=== PATIENT | female | born 1995 | race American Indian/Alaskan Native ===

== ENCOUNTER 2018-08-29 22:02 | Emergency (ER) | payer OTHER ==
--- NOTE | 2018-08-29 23:43 | ED PDOC ---
Arrival/HPI <DieterEddie - Last Filed: 08/30/18 00:51> - General Historian: Patient - History of Present Illness Narrative History of Present Illness (Text): 08/30/18 00:30 23-year-old female presents today with vaginal lesions and burning pain to the vagina since yesterday. Patient states she was seen by her sql etl developer today for similar symptoms and had blood work performed. Patient states she was not given any information as to what could possibly be going on. Patient was not given any medications for pain. Patient presents today with continued pain. States she has not taken any medication for pain at home. Patient states she has painful ulcerations to the vaginal region. Patient states she was told in the past that she had type I herpes. <Lorene Sheriff - Last Filed: 08/30/18 01:21> - General Chief Complaint: Female Genitourinary Time Seen by Provider: 08/29/18 22:41 Past Medical History - Provider Review Nursing Documentation Reviewed: Yes - Tetanus Immunization Tetanus Immunization: Unknown - Reproductive Currently : No - Psychiatric Hx Substance Use: No <Lorene Sheriff - Last Filed: 08/30/18 01:21> Family/Social History - Physician Review Nursing Documentation Reviewed: Yes Family/Social History: Unknown Family HX Smoking Status: Never Smoked Hx Alcohol Use: No Hx Substance Use: No <Lorene Sheriff - Last Filed: 08/30/18 01:21> Allergies/Home Meds <DieterEddie - Last Filed: 08/30/18 00:51> <Lorene Sheriff - Last Filed: 08/30/18 01:21> Allergies/Adverse Reactions: Allergies No Known Allergies Allergy (Verified 08/29/18 22:46) Review of Systems - Review of Systems Constitutional: absent: Fatigue, Fevers Respiratory: absent: SOB, Cough Cardiovascular: absent: Chest Pain, Palpitations Gastrointestinal: absent: Abdominal Pain, Constipation, Diarrhea, Nausea, Vomiting Genitourinary Female: Other (vaginal lesions). absent: Frequency, Hematuria, Vaginal Discharge Musculoskeletal: absent: Back Pain, Neck Pain Skin: absent: Rash, Pruritis <Lorene Sheriff - Last Filed: 08/30/18 01:21> Physical Exam Vital Signs Temp Pulse Resp BP Pulse Ox 08/30/18 00:15 98.6 F 70 19 145/79 99 08/29/18 22:55 98.4 F 75 20 152/77 H 98 <Eddie Garcias - Last Filed: 08/30/18 00:51> Vital Signs Reviewed: Yes Vital Signs Temp Pulse Resp BP Pulse Ox 08/29/18 22:55 98.4 F 75 20 152/77 H 98 Temperature: Afebrile Blood Pressure: Hypertensive Pulse: Regular Respiratory Rate: Normal Appearance: Positive for: Well-Appearing, Non-Toxic, Comfortable Pain Distress: None Mental Status: Positive for: Alert and Oriented X 3 - Systems Exam Head: Present: Atraumatic Mouth: Present: Moist Mucous Membranes Neck: Present: Normal Range of Motion Respiratory/Chest: Present: Clear to Auscultation, Good Air Exchange. No: Respiratory Distress, Accessory Muscle Use Cardiovascular: Present: Regular Rate and Rhythm, Normal S1, S2. No: Murmurs Abdomen: No: Tenderness, Distention, Rebound, Guarding Genitourinary/Pelvic Exam: Present: Other (chaperoned by ER ALAM fernando). No: Normal External Genitalia (multiple vesicular lesions noted to the labia minora without surrounding erythema. Minimal tenderness.), Vaginal Discharge, Vaginal Bleeding, Vaginal Lesions Upper Extremity: Present: Normal ROM Lower Extremity: Present: Normal ROM Neurological: Present: GCS=15 Skin: Present: Warm, Dry Psychiatric: Present: Alert, Oriented x 3 <Lorene Sheriff - Last Filed: 08/30/18 01:21> Medical Decision Making - Medication Orders Current Medication Orders: Discontinued Medications Acyclovir (Zovirax) 400 mg PO STAT STA; Protocol Stop: 08/30/18 00:22 Ketorolac Tromethamine (Toradol) 60 mg IM STAT STA Stop: 08/30/18 00:22 <Eddie Garcias - Last Filed: 08/30/18 00:51> ED Course and Treatment: 08/30/18 00:32 23-year-old female with a 2 day history of painful vaginal lesions. Vaginal lesions appear to represent genital herpes. Patient given for Toradol for pain andstarted on 400 mg of acyclovir 3 times a day 7 days Discussed findings with patient in depth. Advised taking medications as prescribed following up with her sql etl developer. Patient verbalizes understanding of discharge instructions and need for immediate followup. all aspects of this case were discussed the attending of record. Impression: Genital herpes Motrin every 6 hours as needed for pain Acyclovir 3 times daily 7 days Follow-up with the sql etl developer within the next 2 days Follow-up the primary care physician within the next 2 days Return immediately if symptoms worsen persist or if new concerning symptoms develop <Lorene Sheriff - Last Filed: 08/30/18 01:21> - PA / CULINARY ARTIST / Resident Statement MD/DO has reviewed & agrees with the documentation as recorded. <DieterEddie - Last Filed: 08/30/18 00:51> Disposition/Present on Arrival <Eddie Garcias - Last Filed: 08/30/18 00:51> - Present on Arrival Any Indicators Present on Arrival: No History of DVT/PE: No History of Uncontrolled Diabetes: No Urinary Catheter: No History of Decub. Ulcer: No History Surgical Site Infection Following: None - Disposition Have Diagnosis and Disposition been Completed?: Yes Disposition Time: 23:37 Patient Plan: Discharge <Lorene Sheriff - Last Filed: 08/30/18 01:21> - Disposition Diagnosis: Genital herpes Disposition: HOME/ ROUTINE Patient Problems: Current Active Problems Problem Status Onset Genital herpes Acute Condition: FAIR Discharge Instructions (ExitCare): Genital Herpes (DC) Additional Instructions: Motrin every 6 hours as needed for pain Acyclovir 3 times daily 7 days Follow-up with the sql etl developer within the next 2 days Follow-up the primary care physician within the next 2 days Return immediately if symptoms worsen persist or if new concerning symptoms develop Prescriptions: Acyclovir [Zovirax] 400 mg PO TID #21 tab Ibuprofen [Motrin] 600 mg PO Q6H PRN #20 tab PRN Reason: pain/fever reduction Referrals: Black Hilario MD [Staff Provider] - Follow up with primary Benita Johnson MD [Medical Doctor] - Follow up with primary [facility] [Outside] - Follow up with primary Forms: [facility] (Pashto), WORK NOTE, SCHOOL NOTE
[2018-08-30 00:15] VITALS: TEMP 98.6
[2018-08-30 01:44] VITALS: RESP 18
[2018-08-30 01:45] VITALS: BP 145/79; PULSE 90; O2SAT 98
== END 2018-08-30 01:55 | disposition home or self-care (01) ==
LOC: ED 22:02
DX: A60.00 Herpesviral infection of urogenital system, unspecified (principal)
CPT/HCPCS: 81025; 96372; 99283; J1885; J8499